=== PATIENT | female | born 1960 | race Caucasian/White ===

== ENCOUNTER 2017-08-29 21:27 | Emergency (ER) | payer OTHER ==
[~2017-08-29] VITALS: Ht 162.6 cm; Wt 75.0 kg
[2017-08-29 21:29] VITALS: Ht 162.6 cm; Wt 75.0 kg
[2017-08-29] MEDS ORDERED: ONDANSETRON 4 MG INJ IV STA (21:54)
[2017-08-29] MEDS ORDERED: KETOROLAC 30 MG INJ IV STA (21:54)
[2017-08-29] MEDS ORDERED: SOD CHLORIDE 0.9% 1,000 ML IV STA (21:54)
[2017-08-29 22:33] LABS: ADD UMIC YES; UR ASCORBIC ACID NEGATIVE (NEGATIVE); UR BILIRUBIN (Dip) NEGATIVE (NEGATIVE); UR BLOOD (Dip) 2+ mg/dL (NEGATIVE); UR CLARITY CLEAR (CLEAR); UR COLOR YELLOW (YELLOW); UR GLUCOSE (Dip) NEGATIVE (NEGATIVE); UR KETONES (Dip) NEGATIVE (NEGATIVE); UR LEUKOCYTE ESTERASE (Dip) 2+ Leu/ul (NEGATIVE); UR MUCUS FEW /HPF (NONE SEEN); UR NITRITE (Dip) NEGATIVE (NEGATIVE); UR RBC 12 /HPF (0-5); UR SPECIFIC GRAVITY (Dip) 1.024 (1.003-1.030); UR SQUAMOUS EPITHELIAL CELL FEW /HPF (FEW); UR TOTAL PROTEIN (Dip) NEGATIVE (NEGATIVE); UR UROBILINOGEN (Dip) NEGATIVE (NEGATIVE)
[2017-08-29 22:35] LABS: BASOPHILS % 0.4 % (0.0-2.0); EOSINOPHILS # 0.1 10^3/ul (0.0-0.5); EOSINOPHILS % 1.6 % (0.0-7.0); HEMATOCRIT 35.5 % (37.0-47.0); HEMOGLOBIN 11.8 g/dl (12.0-16.0); LYMPHOCYTES # 2.2 10^3/ul (0.8-2.9); LYMPHOCYTES % 29.2 % (15.0-51.0); MEAN CORPUSCULAR HEMOGLOBIN 28.6 pg (29.0-33.0); MEAN CORPUSCULAR HGB CONC 33.2 g/dl (32.0-37.0); MEAN CORPUSCULAR VOLUME 86.2 fl (82.0-101.0); MEAN PLATELET VOLUME 9.6 fl (7.4-10.4); MONOCYTE # 0.7 10^3/ul (0.3-0.9); MONOCYTES % 9.2 % (0.0-11.0); NEUTROPHIL # 4.4 10^3/ul (1.6-7.5); NEUTROPHILS % 59.3 % (39.0-77.0); PLATELET COUNT 305 10^3/UL (140-415); RED BLOOD COUNT 4.12 10^6/ul (4.20-5.40); RED CELL DISTRIBUTION WIDTH 13.6 % (11.5-14.5); WHITE BLOOD COUNT 7.5 10^3/ul (4.8-10.8)
[2017-08-29 22:57] LABS: ALANINE AMINOTRANSFERASE 40 IU/L (13-69); ALBUMIN 4.2 g/dl (3.3-4.9); ALKALINE PHOSPHATASE 80 IU/L (42-121); ANION GAP 11 (8-16); ASPARTATE AMINO TRANSFERASE 24 IU/L (15-46); BILIRUBIN,INDIRECT 0.3 mg/dl (0-1.1); BILIRUBIN,TOTAL 0.3 mg/dl (0.2-1.3); BLOOD UREA NITROGEN 18 mg/dl (7-20); CALCIUM 9.8 mg/dl (8.4-10.2); CARBON DIOXIDE 28 mmol/L (21-31); CHLORIDE 103 mmol/L (97-110); CREATININE 0.91 mg/dl (0.44-1.00); GLUCOSE 107 mg/dl (70-220); POTASSIUM 3.8 mmol/L (3.5-5.1); SODIUM 138 mmol/L (135-144)
[2017-08-29] MEDS ORDERED: NITROFURANTOIN (SR) 100 MG CAP PO ONE (23:00)
[2017-08-29 23:10] LABS: TROPONIN-I < 0.012 ng/ml (0.00-0.12)
[2017-08-29] MEDS ORDERED: NITR-58 PO (23:38)
[2017-08-29] MEDS ORDERED: HYDR-906 PO (23:38)
[2017-08-29] MEDS ORDERED: IBUP-1542 PO (23:38)
[2017-08-29] MEDS ORDERED: ONDA4TAB14 PO (23:38)
--- NOTE | 2017-08-29 23:43 | RADRPT ---
PROCEDURE: CT Abdomen and Pelvis without contrast. CLINICAL INDICATION: Abdominal and pelvic pain. TECHNIQUE: CT scan of the abdomen and pelvis without contrast was performed. Coronal and sagittal reformatted images were obtained from the axial source images. Images were reviewed on a high-resolu [employer] PACS workstation. Total exam DLP is 672.69 mGy-cm. CTDIvol is 11.67 mGy. One or more of the f ollowing dose reduction techniques were used: Automated exposure control, adjustment of the mA and/o r kV according to patient size, use of iterative reconstruction technique. COMPARISON: None. FINDINGS: The lung bases are normal. There is no pleural effusion. The liver is enlarged and diffusely increased in attenuation. There is no focal hepatic lesion. The gallbladder is surgically absent with clips noted in the gallbladder bed. The bile ducts are nor mal. The spleen is normal in size. There is no focal splenic lesion. The right adrenal is normal with no enlargement or mass. There is a low attenuation 0.8 cm left adre nal nodule consistent with a benign process. The pancreas is unremarkable with no mass or evidence of pancreatitis. There is no renal mass or hydronephrosis. There is no renal calculus or ureteral calculus. The abdominal aorta is not dilated. There is calcification in the aorta consistent with atherosclero sis. There is no retroperitoneal lymphadenopathy or mass. There is no pelvic lymphadenopathy or mass. The bladder and distal ureters are normal. The periappendiceal region is unremarkable with no evidence of appendicitis. There is diverticulosis of the descending colon and sigmoid colon. There is no evidence of diverticu litis. There is a focus of edema of the mesentery adjacent to the sigmoid colon with a linear region of attenuation consistent with a central thrombosed vein. This has the appearance of epiploic appen dagitis. The bowel and mesentery are otherwise normal. There is no free fluid or free gas. There are degenerative changes of the spine. The osseous structures are otherwise unremarkable with no fracture or lytic lesion. IMPRESSION: 1. Hepatomegaly. 2. Fatty metamorphosis of the liver. 3. Status post cholecystectomy. 4. Small benign left adrenal nodule. 5. Atherosclerosis. 6. Diverticulosis of the descending colon and sigmoid colon. No evidence of diverticulitis. 7. Epiploic appendagitis in the left lower quadrant. 8. Degenerative changes of the spine. 9. Otherwise unremarkable study. RPTAT: QQ .Elmer Ortega MD, Date Time Electronically viewed and signed by .Elmer Ortega MD, MD on 08/29/2017 23:43 .R/
--- NOTE | 2017-08-29 23:45 | ERD ---
ER Documentation Chief Complaint Date/Time DATE: 08/29/17 TIME: 23:44 Chief Complaint abdominal pain x 4 days HPI Patient is a 57-year-old female with thyroid disease who presents with abdominal pain. She feels "bloated". She said that even with sitting she is having pain for the past 4 days. It is been diffuse pain and constant. She has had no treatment as of yet. She has no fevers. She has no vomiting or diarrhea. She does have a history of diverticulosis. Upon review of old medical records this is the patient's first visit to the emergency department. ROS All systems reviewed and are negative except as per history of present illness. Medications Home Meds Active Scripts Nitrofurantoin Monohyd Macrocr* (Macrobid*) 100 Mg Capsr, 100 MG PO BID for 7 Days, CAP Prov:LIZBET ZARAGOZA MD 08/29/17 Ondansetron (Ondansetron Odt) 4 Mg Tab.rapdis, 4 MG PO Q6H Y for NAUSEA AND/OR VOMITING, #30 TAB Prov:LIZBET ZARAGOZA MD 08/29/17 Hydrocodone/Acetaminophen (Highland 5-325 Tablet) 1 Each Tablet, 1 TAB PO Q6H Y for PAIN, #7 TAB Prov:LIZBET ZARAGOZA MD 08/29/17 Ibuprofen* (Motrin*) 600 Mg Tab, 600 MG PO Q6H Y for PAIN AND OR ELEVATED TEMP, #30 TAB Prov:LIZBET ZARAGOZA MD 08/29/17 Allergies Allergies: Coded Allergies: No Known Drug Allergies (Verified Allergy, Unknown, 08/29/17) PMhx/Soc History of Surgery: Yes (Cholecystectomy) Anesthesia Reaction: No Hx Neurological Disorder: No Hx Respiratory Disorders: No Hx Cardiac Disorders: No Hx Psychiatric Problems: No Hx Miscellaneous Medical Probl: Yes (Diverticulosis,Hypothyroidism) Hx Alcohol Use: No Hx Substance Use: No Hx Tobacco Use: No Smoking Status: Never smoker FmHx Family History: No diabetes Physical Exam Vitals Vital Signs Date Time Temp Pulse Resp B/P Pulse Ox O2 Delivery O2 Flow Rate FiO2 08/29/17 21:29 98.8 91 20 137/84 98 Physical Exam Const: No acute distress Head: Atraumatic Eyes: Normal Conjunctiva ENT: Normal External Ears, Nose and Mouth. Neck: Full range of motion..~ No meningismus. Resp: Clear to auscultation bilaterally Cardio: Regular rate and rhythm, no murmurs Abd: Soft, diffuse tenderness to palpation without rebound or guarding Skin: No petechiae or rashes Back: No midline or flank tenderness Ext: No cyanosis, or edema Neur: Awake and alert Psych: Normal Mood and Affect Result Diagram: 08/29/17211408/29/172114 Results 24 hrs Laboratory Tests Test 08/29/17 21:15 08/29/17 22:00 White Blood Count 7.510^3/ul Red Blood Count 4.1210^6/ul Hemoglobin 11.8g/dl Hematocrit 35.5% Mean Corpuscular Volume 86.2fl Mean Corpuscular Hemoglobin 28.6pg Mean Corpuscular Hemoglobin Concent 33.2g/dl Red Cell Distribution Width 13.6% Platelet Count 47335^3/UL Mean Platelet Volume 9.6fl Neutrophils % 59.3% Lymphocytes % 29.2% Monocytes % 9.2% Eosinophils % 1.6% Basophils % 0.4% Nucleated Red Blood Cells % 0.0/100WBC Neutrophils # 4.410^3/ul Lymphocytes # 2.210^3/ul Monocytes # 0.710^3/ul Eosinophils # 0.110^3/ul Basophils # 0.010^3/ul Nucleated Red Blood Cells # 0.010^3/ul Sodium Level 138mmol/L Potassium Level 3.8mmol/L Chloride Level 103mmol/L Carbon Dioxide Level 28mmol/L Anion Gap 11 Blood Urea Nitrogen 18mg/dl Creatinine 0.91mg/dl Glucose Level 107mg/dl Calcium Level 9.8mg/dl Total Bilirubin 0.3mg/dl Direct Bilirubin 0.00mg/dl Indirect Bilirubin 0.3mg/dl Aspartate Amino Transf (AST/SGOT) 24IU/L Alanine Aminotransferase (ALT/SGPT) 40IU/L Alkaline Phosphatase 80IU/L Troponin I < 0.012ng/ml Total Protein 8.0g/dl Albumin 4.2g/dl Globulin 3.80g/dl Albumin/Globulin Ratio 1.10 Lipase 84U/L Urine Color YELLOW Urine Clarity CLEAR Urine pH 5.0 Urine Specific [place] 1.024 Urine Ketones NEGATIVEmg/dL Urine Nitrite NEGATIVEmg/dL Urine Bilirubin NEGATIVEmg/dL Urine Urobilinogen NEGATIVEmg/dL Urine Leukocyte Esterase 2+Jennifer/ul Urine Microscopic RBC 12/HPF Urine Microscopic WBC 7/HPF Urine Squamous Epithelial Cells FEW/HPF Urine Mucus FEW/HPF Urine Hemoglobin 2+mg/dL Urine Glucose NEGATIVEmg/dL Urine Total Protein NEGATIVEmg/dl Current Medications Medications (Trade) Dose Ordered Sig/Garcia Route PRN Reason Start Time Stop Time Status Last Admin Dose Admin Sodium Chloride (NS) 1,000 ml @ 1,000 mls/hr Q1H STAT IV 08/29/17 21:54 08/29/17 22:53 DC 08/29/17 22:19 Ondansetron HCl (Zofran Inj) 4 mg ONCE STAT IV 08/29/17 21:54 08/29/17 21:55 DC 08/29/17 22:18 Ketorolac Tromethamine (Toradol) 30 mg ONCE STAT IV 08/29/17 21:54 08/29/17 21:55 DC 08/29/17 22:19 Nitrofurantoin Macrocrystals (Macrobid) 100 mg ONCE ONCE PO 08/29/17 23:00 08/29/17 23:07 DC 08/29/17 23:11 Procedures/MDM EKG read by me: Rate/Rhythm: Regular rate and rhythm at a rate of 86 Intervals: Normal Impression: No evidence of ischemia or arrhythmia CT abdomen pelvis shows epiploic appendage otitis per radiology. Patient is a 57-year-old female who presents with abdominal pain. She was found to have acute cystitis. She has basically normal laboratory studies other than a mild anemia with a hemoglobin of 11.8. CT scan shows no sign of bowel obstruction, appendicitis, or other serious etiology. It does show epiploic appendage otitis which could cause pain but is not life-threatening. The patient will be given a prescription for ibuprofen, [place], Zofran, and Macrobid for her cystitis. She will need to follow-up with her primary doctor within 24-48 hours. She can return sooner for any worsening symptoms. Patient understands the plan and is okay for discharge at this time. Departure Diagnosis: Primary Impression: Cystitis Additional Impression: Abdominal pain Abdominal location: generalized Qualified Code: R10.84 - Generalized abdominal pain Condition: Fair Patient Instructions: Abdominal Pain, Cystitis Referrals: Dr. Cobos Additional Instructions: Call your primary care doctor TOMORROW for an appointment during the next 1-2 days.See the doctor sooner or return here if your condition worsens before your appointment time. LIZBET ZARAGOZA MD Aug 29, 2017 23:45
[2017-08-30] VITALS: BP 97/65; PULSE 76; RESP 18; TEMP 97.6
== END 2017-08-30 00:15 | disposition home or self-care (01) ==
LOC: E/R 21:27
DX: N30.00 Acute cystitis without hematuria (principal); R10.84 Generalized abdominal pain; E03.9 Hypothyroidism, unspecified
CPT/HCPCS: 36415; 74176; 80053; 81001; 83690; 84484; 85025; 93005; 96361; 96374; 96375; 99285; J1885; J2405; J7030